=== PATIENT | female | born 1980 | race Caucasian/White ===

== ENCOUNTER 2017-11-18 17:27 | Emergency (ER) | payer OTHER ==
[2017-11-18 17:34] VITALS: BP 110/74; PULSE 79; TEMP 98.7; BMI 47.6
--- NOTE | 2017-11-18 18:02 | PDOC ---
History of Present Illness - General Chief Complaint: Abscess Boil Stated Complaint: PAIN Time Seen by Provider: 11/18/17 17:40 History Source: Patient Exam Limitations: No Limitations - History of Present Illness Initial Comments: 11/18/17 17:57 36-year-old female presents the ED with complaints of pimple to her right armpit /breast 2 days ago and squeezed it. Patient states minimal amount of pus came out but the pimple resolved. Patient states yesterday started to have redness around the area that now spread to the lower aspect and so decided come to the ER. Patient denies history of MRSA, diabetes or other immunosuppressive disorders. Timing/Duration: getting worse Severity: mild Associated Symptoms: reports: denies symptoms Past History - Travel Traveled outside of the country in the last 30 days: No - Past Medical History Allergies/Adverse Reactions: Allergies Allergy/AdvReac Type Severity Reaction Status Date / Time No Known Allergies Allergy Verified 11/18/17 17:29 Home Medications: Ambulatory Orders Sulfamethoxazole/Trimethoprim [Bactrim Ds -] 1 tab PO BID #14 tablet 11/18/17 COPD: No GI Disorders: Yes (ACID REFLUX) - Suicide/Smoking/Psychosocial Hx Smoking History: Never smoked Have you smoked in the past 12 months: No Information on smoking cessation initiated: No Hx Alcohol Use: Yes (occasionally) Drug/Substance Use Hx: No Substance Use Type: Alcohol Patient Lives Alone: No Review of Systems - Review of Systems Able to Perform ROS?: No Constitutional: No: Chills, Fever ABD/GI: No: Symptoms Reported Musculoskeletal: No: Symptoms Reported Integumentary: Yes: Erythema Neurological: No: Symptoms reported Hematologic/Lymphatic: No: Symptoms Reported *Physical Exam - Vital Signs Last Vital Signs Temp Pulse Resp BP Pulse Ox 98.7 F 79 18 110/74 100 11/18/17 17:31 11/18/17 17:31 11/18/17 17:31 11/18/17 17:31 11/18/17 17:31 - Physical Exam General Appearance: Yes: Nourished, Appropriately Dressed. No: Apparent Distress Neck: negative: Lymphadenopathy (R), Lymphadenopathy (L) Respiratory/Chest: positive: Lungs Clear, Normal Breath Sounds. negative: Chest Tender, Respiratory Distress, Accessory Muscle Use Integumentary: positive: Erythema (to right mid axiry line at fourth rib extending anteriorly to the sixth rib. No increased warmth. No edema. No drainage. No fluctuance) Neurologic: positive: Motor Strength 5/5 Medical Decision Making - Medical Decision Making 11/18/17 18:04 Patient with right axillary papule which she squeezed and now developed redness and tenderness to area. Patient recommended to take Bactrim and apply warm soaks to the affected area and to return here if symptoms do not improve over the next 48 hours. *DC/Admit/Observation/Transfer Diagnosis at time of Disposition: Abscess - Discharge Dispostion Disposition: HOME Condition at time of disposition: Good - Prescriptions Prescriptions: Sulfamethoxazole/Trimethoprim [Bactrim Ds -] 1 tab PO BID #14 tablet - Referrals - Patient Instructions Printed Discharge Instructions: DI for Skin Abscess Additional Instructions: I recommended to take Bactrim and apply warm soaks to the affected area and to return here if symptoms do not improve over the next 48 hours. - Post Discharge Activity
== END 2017-11-18 18:10 | disposition home or self-care (01) ==
LOC: JERFT 17:27
DX: L02.411 Cutaneous abscess of right axilla (principal)
CPT/HCPCS: 99281-25